=== PATIENT | female | born 1990 | race Caucasian/White ===

== ENCOUNTER 2016-07-26 16:45 | Emergency (ER) | payer MEDICAID, OTHER ==
[~2016-07-26] VITALS: Ht 175.3 cm; Wt 118.8 kg
[~2016-07-26 16:45] MED LIST: ABILIFY5 MG ORAL; BENZTROPINE MESY2 MG ORAL; CARBAMAZEPINE200 MG ORAL; DIPHENHYDRAMINE25 M1 ORAL; LATUDA80 MG PO; LOXAPINE25 M1 PO
[2016-07-26] MEDS ORDERED: ZOFRAN ODT4 MG ORAL (20:06)
[2016-07-26] MEDS ORDERED: RANITIDINE HCL150 MG ORAL (20:06)
[2016-07-26 20:25] VITALS: BP 102/64
--- NOTE | 2016-07-27 21:03 | Emergency Room Report ---
History of Present Illness General Chief Complaint: Nausea, Vomiting, and Diarrhea Source: Patient, Caregiver Present Illness HPI 25-year-old female presents to ED with vomiting and diarrhea x1 day. Notes multiple episodes of vomiting and multiple episodes of watery loose stools. Denies any abdominal pain. Denies any fevers or chills. Patient has extensive psychiatric history. Patient is here with car manager who endorses same problems. Denies recent antibiotic use. Denies recent travel. No aggravating or relieving factors. Denies any other associated symptoms Allergies: Coded Allergies: NO KNOWN DRUG ALLERGIES (Unverified Allergy, Unknown, 05/14/14) Patient History Past Medical History: psych hx Past Surgical History: none Pertinent Family History: none Social History: Denies: alcohol use, drug use, smoking Now: No Immunizations: UTD Reviewed Nursing Documentation: PMH: Agreed, PSxH: Agreed Nursing Documentation-PMH Past Medical History: No History, Except For History Of Psychiatric Problem: Yes - schizophrenia Review of Systems All Other Systems: negative except mentioned in HPI Physical Exam Vital Signs Date Time Temp Pulse Resp B/P Pulse Ox O2 Delivery O2 Flow Rate FiO2 07/26/16 17:16 98.4 122 18 94/60 97 Room Air Sp02 EP Interpretation: reviewed, normal General Appearance: no apparent distress, alert, GCS 15, non-toxic Head: normocephalic, atraumatic Eyes: bilateral eye PERRL, bilateral eye normal inspection ENT: hearing grossly normal, normal pharynx, no angioedema, normal voice Neck: full range of motion, supple/symm/no masses Respiratory: chest non-tender, lungs clear, normal breath sounds, speaking full sentences Cardiovascular #1: regular rate, rhythm, no edema Cardiovascular #2: 2+ carotid (R), 2+ carotid (L), 2+ radial (R), 2+ radial (L) , 2+ dorsalis pedis (R), 2+ dorsalis pedis (L) Gastrointestinal: normal bowel sounds, non tender, soft, non-distended, no guarding, no rebound Rectal: deferred Genitourinary: normal inspection, no CVA tenderness Musculoskeletal: back normal, gait/station normal, normal range of motion, non- tender Neurologic: alert, oriented x3, responsive, motor strength/tone normal, sensory intact, speech normal Psychiatric: judgement/insight normal, memory normal, mood/affect normal, no suicidal/homicidal ideation Reflexes: 3+ bicep (R), 3+ bicep (L), 3+ tricep (R), 3+ tricep (L), 3+ knee (R) , 3+ knee (L) Skin: normal color, no rash, warm/dry, well hydrated Lymphatic: no adenopathy Medical Decision Making Diagnostic Impression: Primary Impression: Gastroenteritis ER Course Hospital Course 25-year-old F presents to ED with 1 day history of vomiting, diarrhea differential diagnosis: gastritis, SBO, cholecystits, gastroenteritis Clinical course Patient placed on stretcher. On cardiac tech. After initial history my physical exam reveals a young female in no acute distress. Abdomen soft. No guarding or rebound. Patient only request IV fluids and Zofran. I see no reason to drawn labs at this time Upon reassessment, patient states she feels better I feel this is a highly complex case requiring extensive working including EKG/ Rhythm strip, Xray/CT/US, Blood/urine lab work, repeat exams while in ED, and administration of strong opiates/narcotics for pain control, admission to hospital or close patient follow up. Diagnosis - gastroenteritis Stable and discharged to home with prescriptions for Zantac, zofran. Followup with PMD. Return to ED if symptoms recur or worsen Last Vital Signs Date Time Temp Pulse Resp B/P Pulse Ox O2 Delivery O2 Flow Rate FiO2 07/26/16 20:25 98.4 18 94/60 97 Room Air 07/26/16 20:25 84 Status: improved Disposition: HOME, SELF-CARE Condition: Stable Scripts Ranitidine Hcl* (ZANTAC*) 150 Mg Tablet 150 MG ORAL TWICE A DAY, #30 TAB Prov: TONY LUIS M.D. 07/26/16 Ondansetron Odt* (ZOFRAN ODT*) 4 Mg Tab.rapdis 4 MG ORAL Q6H Y for Nausea & Vomiting, #30 TAB 0 Refills Prov: TONY LUIS M.D. 07/26/16 Patient Instructions: Viral Gastroenteritis, Adult, [id number] TONY LUIS M.D. Jul 27, 2016 21:03
== END 2016-07-26 20:25 | disposition home or self-care (01) ==
LOC: EMR 17:46
DX: K52.9 Noninfective gastroenteritis and colitis, unspecified (principal); F20.9 Schizophrenia, unspecified
CPT/HCPCS: 96374; 96375; 99284; J2405; J7040